=== PATIENT | male | born 1995 | race Caucasian/White ===

== ENCOUNTER 2018-09-04 14:43 | Emergency (ER) | payer BC, SELFPAY | END 2018-09-04 15:50 | LOC: ERS 14:43 | DX: Z02.89 Encounter for other administrative examinations (principal); F41.9 Anxiety disorder, unspecified; F32.9 Major depressive disorder, single episode, unspecified; F17.210 Nicotine dependence, cigarettes, uncomplicated; Z79.01 Long term (current) use of anticoagulants; V89.2XXA Person injured in unspecified motor-vehicle accident, traffic, initial encounter | CPT/HCPCS: 99284 ==

== ENCOUNTER 2018-09-04 22:01 | Emergency (ER) | payer SELFPAY ==
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
[2018-09-04] MEDS ORDERED: Ketorolac Tromethamine 60 MG/2 ML VIAL ONE (23:42)
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
== END 2018-09-05 00:06 | disposition home or self-care (01) ==
LOC: ERS 22:01
DX: S39.012A Strain of muscle, fascia and tendon of lower back, initial encounter (principal); I10 Essential (primary) hypertension; F41.9 Anxiety disorder, unspecified; F17.200 Nicotine dependence, unspecified, uncomplicated; F32.9 Major depressive disorder, single episode, unspecified; Z79.01 Long term (current) use of anticoagulants; V47.5XXA Car driver injured in collision with fixed or stationary object in traffic accident, initial encounter
CPT/HCPCS: 72100; 72125; 96372; J1885

== ENCOUNTER 2019-03-11 15:56 | Emergency (ER) | payer SELFPAY ==
[2019-03-11 16:38] LABS: #Basophils 0.1 thou/uL (0.0-0.2); #Eosinphils 0.1 thou/uL (0.0-0.7); #Lymphocytes 2.6 thou/uL (1.20-3.40); #Monocytes 0.8 thou/uL (0.11-0.59); #Neutrophils 4.9 thou/uL (1.40-6.50); %Basophils 1.1 % (0.0-1.0); %Eosinophils 0.7 % (0.0-10.0); %Lymphocytes 30.8 % (21.0-51.0); %Monocytes 9.3 % (0.0-10.0); %Neutrophils 58.1 % (42.0-75.0); Hemoglobin 14.9 g/dL (14.0-18.0); Mean Corpuscular HGB CONC 34.1 g/dL (32.0-36.0); Mean Corpuscular Hemoglobin 29.5 pg (27.0-31.0); Mean Corpuscular Volume 86.4 fL (78.0-98.0); Mean Platelet Volume 9.1 fL (7.4-10.4); Platelet Count 292 thou/uL (130-400); RBC Distribution Width 12.9 % (11.5-14.5); Red Blood Cell (RBC) Count 5.07 mill/uL (4.70-6.10); White Blood Cell (WBC) Count 8.5 thou/uL (4.8-10.8)
[2019-03-11 17:03] LABS: ALT (SGPT) 23 U/L (8-55); AST (SGOT) 19 U/L (5-34); Acetaminophen Less than 6.0 mcg/mL (10.0-30.0); Albumin 4.6 g/dL (3.5-5.0); Alcohol Less than 10 mg/dL (Less than 10); Alkaline Phosphatase 49 U/L (40-150); Anion Gap 16 mmol/L (10-20); BUN (Urea Nitrogen) 11 mg/dL (8.9-20.6); Bilirubin, Total 1.4 mg/dL (0.2-1.2); Calc. Creatinine Clearance 0 mL/min (70-130); Calcium 10.4 mg/dL (7.8-10.44); Carbon Dioxide 19 mmol/L (22-29); Chloride 109 mmol/L (98-107); Estimated GFR-MDRD 78; Globulin 3.2 g/dL (2.4-3.5); Glucose 124 mg/dL (70-105); Potassium 3.2 mmol/L (3.5-5.1); Protein, Total 7.8 g/dL (6.0-8.3); Salicylate Less than 8.0 mg/dL (15.0-30.0); Sodium 141 mmol/L (136-145)
== END 2019-03-11 17:34 | disposition left against medical advice (07) ==
LOC: ERS 15:56
DX: F14.10 Cocaine abuse, uncomplicated (principal); F41.9 Anxiety disorder, unspecified; F32.9 Major depressive disorder, single episode, unspecified; Z79.01 Long term (current) use of anticoagulants; Z79.899 Other long term (current) drug therapy
CPT/HCPCS: 36415; 80053; 80307; 85025; 93005

== ENCOUNTER 2019-05-28 17:44 | Emergency (ER) | payer OTHER ==
[2019-05-28 19:07] LABS: #Basophils 0.1 thou/uL (0.0-0.2); #Eosinphils 0.3 thou/uL (0.0-0.7); #Lymphocytes 3.2 thou/uL (1.20-3.40); #Monocytes 0.8 thou/uL (0.11-0.59); #Neutrophils 4.7 thou/uL (1.40-6.50); %Basophils 1.3 % (0.0-1.0); %Eosinophils 3.5 % (0.0-10.0); %Lymphocytes 34.7 % (21.0-51.0); %Neutrophils 51.6 % (42.0-75.0); Hemoglobin 13.5 g/dL (14.0-18.0); Mean Corpuscular HGB CONC 34.4 g/dL (32.0-36.0); Mean Corpuscular Hemoglobin 29.3 pg (27.0-31.0); Mean Corpuscular Volume 85.2 fL (78.0-98.0); Mean Platelet Volume 8.4 fL (7.4-10.4); Platelet Count 321 thou/uL (130-400); RBC Distribution Width 12.9 % (11.5-14.5); Red Blood Cell (RBC) Count 4.59 mill/uL (4.70-6.10); White Blood Cell (WBC) Count 9.2 thou/uL (4.8-10.8)
[2019-05-28] MEDS ORDERED: clonazePAM 0.5 MG TAB ONE (19:23)
[2019-05-28 19:30] LABS: ALT (SGPT) 15 U/L (8-55); AST (SGOT) 13 U/L (5-34); Acetaminophen Less than 6.0 mcg/mL (10.0-30.0); Albumin 4.6 g/dL (3.5-5.0); Alcohol Less than 10 mg/dL (Less than 10); Alkaline Phosphatase 61 U/L (40-150); Anion Gap 14 mmol/L (10-20); BUN (Urea Nitrogen) 9 mg/dL (8.9-20.6); Bilirubin, Total 0.6 mg/dL (0.2-1.2); CK (CPK) 71 U/L (30-200); Calc. Creatinine Clearance 0 mL/min (70-130); Calcium 9.7 mg/dL (7.8-10.44); Carbon Dioxide 25 mmol/L (22-29); Chloride 104 mmol/L (98-107); Estimated GFR-MDRD Greater than 90; Glucose 91 mg/dL (70-105); Potassium 3.9 mmol/L (3.5-5.1); Protein, Total 7.6 g/dL (6.0-8.3); Salicylate Less than 8.0 mg/dL (15.0-30.0); Sodium 139 mmol/L (136-145)
[2019-05-29 00:04] LABS: Bacteria/HPF None Seen HPF (None Seen); Bilirubin Negative (Negative); Blood, Urine 1+ (Negative); Clarity Clear (Clear); Glucose, Urine (Dipstick) Normal (Negative); Leukocyte Negative Leu/uL (Negative); Mucous/LPF 2+ LPF (<2+); Nitrite Negative (Negative); Protein, Urine (Dipstick) 30 mg/dL (Neg-Trace); Squamous Epithelial 0-3 HPF (0-3); Urobilinogen Normal mg/dL (Less than 2); WBC/HPF 0-3 HPF (0-3)
[2019-05-29 00:10] LABS: Amphetamine Detected (NotDetected); Barbiturates Screen Not Detected (NotDetected); Benzodiazepine Screen Not Detected (NotDetected); Cocaine Metabolite Screen Not Detected (NotDetected); Medtox Control Line Valid? VALID (VALID); Medtox Reader # READER 4; Methadone Not Detected (NotDetected); Methamphetamine Detected (NotDetected); Opiate Screen Not Detected (NotDetected); Oxycodone Screen Not Detected (NotDetected); Phencyclidine (PCP) Not Detected (NotDetected); THC/Cannabinoid Screen Not Detected (NotDetected); Tricyclic Screen Not Detected (NotDetected)
--- NOTE | 2019-05-31 14:43 | EKG ---
Test Reason : Blood Pressure : / mmHG Vent. Rate : 065 BPM Atrial Rate : 065 BPM P-R Int : 118 ms QRS Dur : 096 ms QT Int : 400 ms P-R-T Axes : 011 060 041 degrees QTc Int : 416 ms Normal sinus rhythm with sinus arrhythmia Normal ECG Confirmed by KAREN MENDIOLA M.D. ([id number]), web content editor IRINEO PATTON ([id number]) on 05/31/2019 2:42:58 PM Referred By: Confirmed By:KAREN MENDIOLA M.D.
== END 2019-05-29 05:35 ==
LOC: ERS 17:44
DX: F19.10 Other psychoactive substance abuse, uncomplicated (principal); F23 Brief psychotic disorder; F41.9 Anxiety disorder, unspecified; F32.9 Major depressive disorder, single episode, unspecified; F17.200 Nicotine dependence, unspecified, uncomplicated; Z79.899 Other long term (current) drug therapy
CPT/HCPCS: 36415; 80053; 80306; 80307; 81003; 81015; 82550; 84443; 85025; 93005; 94760

== ENCOUNTER 2019-07-10 01:47 | Emergency (ER) | payer OTHER ==
[2019-07-10 02:37] LABS: #Basophils 0.1 thou/uL (0.0-0.2); #Eosinphils 0.5 thou/uL (0.0-0.7); #Lymphocytes 2.5 thou/uL (1.20-3.40); #Monocytes 1.1 thou/uL (0.11-0.59); #Neutrophils 5.1 thou/uL (1.40-6.50); %Basophils 0.7 % (0.0-1.0); %Lymphocytes 26.7 % (21.0-51.0); %Monocytes 12.2 % (0.0-10.0); %Neutrophils 55.3 % (42.0-75.0); Hemoglobin 12.1 g/dL (14.0-18.0); Mean Corpuscular HGB CONC 34.7 g/dL (32.0-36.0); Mean Corpuscular Hemoglobin 30.2 pg (27.0-31.0); Mean Platelet Volume 8.6 fL (7.4-10.4); Platelet Count 224 thou/uL (130-400); White Blood Cell (WBC) Count 9.2 thou/uL (4.8-10.8)
[2019-07-10 02:55] LABS: Amphetamine Not Detected (NotDetected); Barbiturates Screen Not Detected (NotDetected); Benzodiazepine Screen Not Detected (NotDetected); Cocaine Metabolite Screen Not Detected (NotDetected); Medtox Control Line Valid? VALID (VALID); Medtox Reader # READER 4; Methadone Not Detected (NotDetected); Methamphetamine Not Detected (NotDetected); Opiate Screen Not Detected (NotDetected); Oxycodone Screen Not Detected (NotDetected); Phencyclidine (PCP) Not Detected (NotDetected); THC/Cannabinoid Screen Not Detected (NotDetected); Tricyclic Screen Not Detected (NotDetected)
[2019-07-10 02:59] LABS: ALT (SGPT) 13 U/L (8-55); AST (SGOT) 13 U/L (5-34); Acetaminophen Less than 6.0 mcg/mL (10.0-30.0); Albumin 3.9 g/dL (3.5-5.0); Alcohol Less than 10 mg/dL (Less than 10); Alkaline Phosphatase 51 U/L (40-110); Anion Gap 11 mmol/L (10-20); BUN (Urea Nitrogen) 12 mg/dL (8.9-20.6); Bilirubin, Total 0.4 mg/dL (0.2-1.2); CK (CPK) 148 U/L (30-200); Calc. Creatinine Clearance 0 mL/min (70-130); Calcium 8.9 mg/dL (7.8-10.44); Carbon Dioxide 27 mmol/L (22-29); Chloride 107 mmol/L (98-107); Estimated GFR-MDRD Greater than 90; Globulin 2.4 g/dL (2.4-3.5); Glucose 99 mg/dL (70-105); Potassium 4.1 mmol/L (3.5-5.1); Protein, Total 6.3 g/dL (6.0-8.3); Salicylate Less than 8.0 mg/dL (15.0-30.0); Sodium 141 mmol/L (136-145)
== END 2019-07-10 03:32 | disposition home or self-care (01) ==
LOC: ERS 01:47
DX: F11.23 Opioid dependence with withdrawal (principal); E05.90 Thyrotoxicosis, unspecified without thyrotoxic crisis or storm; L01.00 Impetigo, unspecified; F41.9 Anxiety disorder, unspecified; F32.9 Major depressive disorder, single episode, unspecified; F17.200 Nicotine dependence, unspecified, uncomplicated; Z79.899 Other long term (current) drug therapy
CPT/HCPCS: 36415; 80053; 80306; 80307; 82550; 84443; 85025; 99284

== ENCOUNTER 2019-07-20 11:58 | Emergency (ER) | payer OTHER | END 2019-07-20 12:58 | disposition home or self-care (01) | LOC: ERS 11:58 | DX: L02.01 Cutaneous abscess of face (principal); H10.9 Unspecified conjunctivitis; F41.9 Anxiety disorder, unspecified; F32.9 Major depressive disorder, single episode, unspecified; F17.200 Nicotine dependence, unspecified, uncomplicated | CPT/HCPCS: 99283 ==

== ENCOUNTER 2019-10-11 11:09 | Inpatient (IN) | payer OTHER, SELFPAY ==
[2019-10-11] MEDS ORDERED: Naloxone HCl 0.4 mg/ml Vial ONE (11:12)
[2019-10-11] MEDS ORDERED: Naloxone HCl 2 mg/2 ml Syringe ONE (11:12)
[2019-10-11] MEDS ORDERED: Ketamine 50 MG/ML (10ML VIAL) ONE (11:18)
[2019-10-11] MEDS ORDERED: fentaNYL Citrate/PF 2,000 MCG in Sodium Chloride 0.9% 60 ML IV SCH (11:31)
[2019-10-11 11:44] LABS: INR-International Normal Ratio 1.2; PTT 36.7 SEC (22.9-36.1); Prothrombin Time 15.5 SEC (12.0-14.7)
[2019-10-11 11:51] LABS: Bacteria/HPF None Seen HPF (None Seen); Bilirubin Negative (Negative); Blood, Urine 1+ (Negative); Clarity Clear (Clear); Glucose, Urine (Dipstick) Normal (Negative); Leukocyte Negative Leu/uL (Negative); Nitrite Negative (Negative); Protein, Urine (Dipstick) 30 mg/dL (Neg-Trace); RBC/HPF 0-3 HPF (0-3); Squamous Epithelial 0-3 HPF (0-3); Urobilinogen Normal mg/dL (Less than 2); WBC/HPF 0-3 HPF (0-3)
[2019-10-11 11:52] LABS: Band 18 % (5-11); Hemoglobin 14.8 g/dL (14.0-18.0); Lymphocytes 14 % (21-51); MDiff Complete? YES; Mean Corpuscular HGB CONC 33.1 g/dL (32.0-36.0); Mean Corpuscular Hemoglobin 29.2 pg (27.0-31.0); Mean Corpuscular Volume 88.2 fL (78.0-98.0); Mean Platelet Volume 10.1 fL (7.4-10.4); Neutrophil 68 % (42-75); Platelet Count 181 thou/uL (130-400); RBC Distribution Width 13.2 % (11.5-14.5); Red Blood Cell (RBC) Count 5.07 mill/uL (4.70-6.10); White Blood Cell (WBC) Count 16.3 thou/uL (4.8-10.8)
[2019-10-11 12:01] LABS: Amphetamine Detected (NotDetected); Barbiturates Screen Not Detected (NotDetected); Benzodiazepine Screen Not Detected (NotDetected); Cocaine Metabolite Screen Not Detected (NotDetected); Medtox Control Line Valid? VALID (VALID); Medtox Reader # READER 4; Methadone Not Detected (NotDetected); Methamphetamine Detected (NotDetected); Opiate Screen Detected (NotDetected); Oxycodone Screen Not Detected (NotDetected); Phencyclidine (PCP) Not Detected (NotDetected); THC/Cannabinoid Screen Not Detected (NotDetected); Tricyclic Screen Not Detected (NotDetected)
[2019-10-11 12:01] LABS: Acetaminophen Less than 6.0 mcg/mL (10.0-30.0); Alcohol Less than 10 mg/dL (Less than 10); Salicylate Less than 8.0 mg/dL (15.0-30.0)
[2019-10-11 12:02] LABS: ALT (SGPT) 200 U/L (8-55); AST (SGOT) 225 U/L (5-34); Albumin 4.6 g/dL (3.5-5.0); Alkaline Phosphatase 82 U/L (40-110); Anion Gap 20 mmol/L (10-20); BUN (Urea Nitrogen) 20 mg/dL (8.9-20.6); Bilirubin, Total 0.5 mg/dL (0.2-1.2); Calc. Creatinine Clearance 0 mL/min (70-130); Calcium 8.7 mg/dL (7.8-10.44); Carbon Dioxide 21 mmol/L (22-29); Chloride 103 mmol/L (98-107); Estimated GFR-MDRD 48; Globulin 2.8 g/dL (2.4-3.5); Glucose 125 mg/dL (70-105); Lipase 13 U/L (8-78); Protein, Total 7.4 g/dL (6.0-8.3); Sodium 138 mmol/L (136-145)
[2019-10-11 12:10] LABS: Actual Bicarbonate (HCO3a) 20.8 mEq/L (22-28); Analyzer IN Cardio ER; Base Excess (BEa) -8.7 mEq/L (-2.0 to +3.0); Calcium, Ionized 1.15 mmol/L (1.12-1.30); Carboxyhemoglobin (COHb) 0.3 gm% (0.0-3.0); Hemoglobin (Hb) 14.2 g/dL (14.0-18.0); Potassium - ABG Lab 5.33 mmol/L (3.70-5.30)
[2019-10-11] MEDS ORDERED: Norepinephrine 8 MG/0.9% NS 250 ML ONE (12:27)
[2019-10-11 12:55] LABS: CKMB 2.3 ng/mL (0-6.6)
--- NOTE | 2019-10-11 12:57 | RAD ---
PORTABLE CHEST ONE VIEW: 10/11/2019 11:51 a.m. HISTORY: Respiratory failure. FINDINGS: There is an endotracheal tube with the tip at the level of the clavicular heads. A nasogastric tube c an be traced into the stomach. There is opacification of the right hemithorax which may be due to ate lectatic change or effusion. The left lung is clear. The heart size is normal. Since there is no midl ine shift, the finding in the right hemithorax is more likely due to atelectatic change than a pleura l effusion. POS: [facility]
[2019-10-11] MEDS ORDERED: Piperacillin/Tazobactam 3.375 GM VIAL ONE (13:30)
[2019-10-11] MEDS ORDERED: Propofol 1,000 MG/100 ML VIAL IV ONE (14:00)
[2019-10-11] MEDS ORDERED: Senokot S 8.6-50 MG TAB PO PRN (14:07)
[2019-10-11] MEDS ORDERED: Loperamide HCl 2 MG CAP PO PRN (14:07)
[2019-10-11] MEDS ORDERED: Bisacodyl 5 MG TAB PO PRN (14:07)
--- NOTE | 2019-10-11 14:09 | RAD ---
PORTABLE CHEST ONE VIEW: 10/11/2019 1:36 p.m. HISTORY: Respiratory failure. COMPARISON: Exam done at 11:51 a.m. from the same day. FINDINGS: Endotracheal and nasogastric tubes remain in place. There has been interval improvement in aeration o f the right lung, compared to the previous study. The heart size is stable and the left lung is clear . There is suggestion of a small right pleural effusion. POS: [facility]
[2019-10-11] MEDS ORDERED: Melatonin 3 MG TAB PO PRN (14:10)
[2019-10-11] MEDS ORDERED: Lorazepam 2 MG/ML VIAL SLOW IVP PRN ×2 (14:10→16:26)
[2019-10-11] MEDS ORDERED: Benzonatate 100 MG CAP PO PRN (14:10)
[2019-10-11] MEDS ORDERED: Labetalol HCl 100 MG/20 ML VIAL SLOW IVP PRN (14:10)
[2019-10-11] MEDS ORDERED: Haloperidol Lactate 5 MG/ML VIAL IM PRN (14:10)
[2019-10-11 14:29] LABS: CO2 Tension 60.3 mmHg (35.0-45.0); pH, Arterial 7.16 (7.35-7.45)
[2019-10-11 14:30] LABS: ALV-art Gradient 585.625 (0-20); Puncture Site LBA
[2019-10-11 14:39] LABS: Lactic Acid 4.2 mmol/L (0.5-2.2)
--- NOTE | 2019-10-11 14:45 | RAD ---
XR Chest 1 View Portable HISTORY: Respiratory failure, central line placement COMPARISON: 1:36 PM from same date FINDINGS: There is been interval placement of a right internal jugular central venous catheter with t ip in the projection of the SVC. No pneumothorax is seen. Remainder the exam is stable.
[2019-10-11] MEDS ORDERED: Vancomycin HCl 1.75 GM in Sodium Chloride 0.9% 500 ML IVPB SCH (15:00)
[2019-10-11] MEDS ORDERED: Cefepime 2 GM in Sodium Chloride 0.9% 100 ML IVPB SCH (15:00)
[2019-10-11] MEDS ORDERED: Cefepime 2 GM VIAL ONE (15:12)
--- NOTE | 2019-10-11 16:18 | CT ---
CT BRAIN WITHOUT CONTRAST: HISTORY: Drug overdose, dilated pupils COMPARISON: 04/15/2015 FINDINGS: No evidence of acute infarct, hemorrhage, midline shift or abnormal extra-axial fluid collections is seen. The ventricular size is appropriate and the basilar cisterns are patent. The bony calvarium is intact. The visualized paranasal sinuses and mastoid air cells are well aerated. IMPRESSION: No CT evidence of acute intracranial process.
[2019-10-11] MEDS ORDERED: Propofol BOLUS 1,000 MG/100 ML VIAL IV PRN (16:26)
[2019-10-11] MEDS ORDERED: DISCONTINUE PREVIOUS NARCOTIC PAIN MEDICATIONS AND BENZODIAZEPINES FS SCH (16:26)
[2019-10-11] MEDS ORDERED: Fentanyl BOLUS 250 ML IVPB PRN (16:26)
[2019-10-11] MEDS ORDERED: Morphine 2 MG/ML SYRINGE SLOW IVP PRN (16:26)
[2019-10-11] MEDS ORDERED: methylPREDNISolone Sod Succ 40 MG VIAL IVP SCH (17:15)
--- NOTE | 2019-10-11 17:41 | CON ---
DATE OF CONSULTATION: 10/11/2019 SERVICE: Pulmonary Medicine. REASON FOR CONSULTATION: Intubated patient. HISTORY OF PRESENT ILLNESS: The patient is a 24-year-old white male with past medical history significant for seizures. It is not clear when he was last seen in his usual state of health. Either way, he was found by the cleaning crew at a motel that he was at. He was down and completely unresponsive. Apparently, there was some crushed pills around him and there was some paraphernalia suggesting that he was snorting some material. Unfortunately, we are not certain what that was. Either way, since he was not protecting his airway with a GST of 3, he is brought to the emergency department. He was never pulseless, though he was bradycardic. In the emergency department, he was found to be acidotic. He was horrendously hypoxemic. Chest x-ray was performed demonstrating a complete atelectasis of the majority of the right lung. We emergently bronched him downstairs in the emergency department, and his oxygenation improved. We are going to be holding all sedation to see whether or not he wakes up through time. Otherwise, no additional history can be obtained from him. PAST MEDICAL HISTORY: Seizure disorder. PAST SURGICAL HISTORY: Tonsillectomy. FAMILY HISTORY: Noncontributory. SOCIAL HISTORY: He currently uses and abuses benzodiazepine, cocaine, and heroin. ALLERGIES: No known drug allergies. MEDICATIONS: List of his inpatient medications was reviewed and heavily modified. REVIEW OF SYSTEMS: Cannot be obtained as the patient is currently encephalopathic. PHYSICAL EXAMINATION: VITAL SIGNS: Afebrile, pulse 113, blood pressure 112/73, respirations. HEENT: Normocephalic and atraumatic. Sclerae white. Conjunctivae pink. Oral mucosa is moist without lesions. LUNGS: There is decreased air entry on the right. There is slightly prolonged expiratory phase. Good air entry on the left. No rhonchi appreciated. HEART: Normal rate. Regular. ABDOMEN: Soft, nontender, nondistended. Bowel sounds are positive. MUSCULOSKELETAL: No cyanosis or clubbing. There is no pitting in the bilateral lower extremities. He has multiple red/erythematous plaques and punctate lesions. He has a breakdown on the back of his neck, which is unstageable. LABORATORY DATA: WBC 16.3, hemoglobin 14.8, platelets 181,000. INR 1.2. PH 7.16, pCO2 of 60, of PO2 of 52. Creatinine 1.77, potassium 6.0. Basic metabolic profile is otherwise unremarkable. AST and ALT are elevated. CK 1981, troponin 0.06. Lactate is trending downward to 4.2. Urinalysis is unremarkable. Urine drug screen is positive for opiates, amphetamines, and methamphetamine. Salicylates, acetaminophen, and alcohol are unremarkable. Respiratory culture is unremarkable. IMAGING DATA: 1. Chest x-ray demonstrates endotracheal tube is in good position. There is a right IJ central venous catheter, which is also in good position. There has been interval re-expansion of that right lung. 2. CT of the brain demonstrates no acute intracranial abnormality. ASSESSMENT: 1. Acute hypoxic respiratory failure. 2. Septic shock, etiology unknown. 3. Acute kidney injury. 4. Elevated CK. 5. Shock liver. 6. Polysubstance drug abuse. DISCUSSION AND PLAN: We will empirically put him on good antibiotics. We will give him steroids and nebulized medications. I will repeat a CK and a troponin tomorrow morning. Pulmonary/Critical Care will continue to follow along very closely. Critical care time: 30 minutes. Job ID: [id number] MTDD
[2019-10-11] MEDS ORDERED: Sodium Chloride 0.9% 1,000 ML IV SCH (17:45)
--- NOTE | 2019-10-11 17:54 | PDOC.HHP ---
Hospitalist HPI - History of Present Illness Overdose History of Present Illness: 24-year-old gentleman with past medical history of extensive drug use and seizure disorder presents with drug overdose. Reportedly patient was found by EMS at a motel surrounded by crushed pills and paraphernalia. Patient was intubated for airway protection and low [place] Coma Scale. Upon arrival in the emergency department patient was hypoxic and it was found that he had mucus plugging in the right lung requiring emergent bronchoscopy. After bronchoscopy patient's O2 saturation's normalized. I find the patient in the intensive care unit he is intubated, sedated, and on vasoactive medications to maintain his blood pressure. Patient diagnosed with acute respiratory failure secondary drug overdose and mucus plugging. Patient septic with shock requiring vasoactive medications, no obvious source though aspiration pneumonia is likely. Patient with rhabdomyolysis with elevated CK and acute kidney injury. Patient with urinary toxicology positive for opiates, amphetamines, and methamphetamines. Patient does have track archuleta on both antecubital fossa from recent injection use. I had a long discussion with the patient's parents at bedside. They tell me that he has been out of long term for roughly one week and was back on drugs within two days of release from long term. Patient has had similar episodes in the past. Patient has reportedly used all drugs including intravenous heroin, methamphetamines and his parents tell me "he has used everything". Patient has been to drug and alcohol rehabilitation programs in the past. Patient has been to inpatient psychiatric facilities in the past. Patient's parents tell me that less than 24 hours ago he told them that if things got any worse for him he was going to kill himself. At this point we have diagnosed him with attempted suicide from drug overdose. Patient will require inpatient psychiatric care after he has been medically stabilized. Prognosis guarded. 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 Infectious Disease: reports: Other (Possible Hepatitis C) - Family History Family History: reports: hypertension - Social History Alcohol: reports: Occassional Drugs: reports: cocaine, heroine, marijuana, methamphetamine, Other Living Situation: Friends Domestic Violence: Negative Activity level: independent ambulation - Exam General Appearance: ill appearing Eye: anicteric sclera Eye - other findings: Pinpoint pupils ENT: no oropharyngeal lesions, dry oral mucosa Neck: supple, symmetric, no lymphadenopathy Heart: no murmur, no gallops, no rubs Heart - other findings: sinsus tachycardia Respiratory: no rales, rhonchi (right), wheezes (right few scattered) Gastrointestinal: soft, non-tender, no guarding, no rigidity Extremities: no edema Skin: negative: no rashes (Pick archuleta from Meth use accross arms and legs) Skin - other findings: Antecubital fossa track archuleta from injection drugs Neurological: cranial nerve grossly intact, no focal deficits Psychiatric: not oriented Hospitalist Results - Labs Result Diagrams: 10/11/19 11:27 10/11/19 11:27 Lab results: WBC 16.3 thou/uL (4.8-10.8) H 10/11/19 11:27 Hgb 14.8 g/dL (14.0-18.0) 10/11/19 11:27 Hct 44.7 % (42.0-52.0) 10/11/19 11:27 MCV 88.2 fL (78.0-98.0) 10/11/19 11:27 Plt Count 181 thou/uL (130-400) 10/11/19 11:27 Band Neuts % (Manual) 18 % (5-11) H 10/11/19 11:27 ABG pH 7.16 (7.35-7.45) L* 10/11/19 11:41 ABG pCO2 60.3 mmHg (35.0-45.0) H* 10/11/19 11:41 ABG pO2 52.0 mmHg (80.0-100.0) L* 10/11/19 11:41 Sodium 138 mmol/L (136-145) 10/11/19 11:27 Potassium 6.0 mmol/L (3.5-5.1) H 10/11/19 11:27 Chloride 103 mmol/L (98-107) 10/11/19 11:27 Carbon Dioxide 21 mmol/L (22-29) L 10/11/19 11:27 BUN 20 mg/dL (8.9-20.6) 10/11/19 11:27 Creatinine 1.77 mg/dL (0.7-1.3) H 10/11/19 11:27 Glucose 125 mg/dL (70-105) H 10/11/19 11:27 Lactic Acid 4.2 mmol/L (0.5-2.2) H* 10/11/19 14:05 Calcium 8.7 mg/dL (7.8-10.44) 10/11/19 11:27 Total Bilirubin 0.5 mg/dL (0.2-1.2) 10/11/19 11:27 AST 225 U/L (5-34) H 10/11/19 11:27 ALT 200 U/L (8-55) H 10/11/19 11:27 Alkaline Phosphatase 82 U/L (40-110) 10/11/19 11:27 Creatine Kinase 1981 U/L (30-200) H 10/11/19 11:27 CK-MB (CK-2) 2.3 ng/mL (0-6.6) 10/11/19 11:27 Troponin I 0.200 ng/mL (< 0.028) H 10/11/19 16:49 Serum Total Protein 7.4 g/dL (6.0-8.3) 10/11/19 11:27 Albumin 4.6 g/dL (3.5-5.0) 10/11/19 11:27 Lipase 13 U/L (8-78) 10/11/19 11:27 Urine Ketones Negative mg/dL (Negative) 10/11/19 11:33 Urine Blood 1+ (Negative) A 10/11/19 11:33 Urine Nitrite Negative (Negative) 10/11/19 11:33 Ur Leukocyte Esterase Negative Shemar/uL (Negative) 10/11/19 11:33 Urine RBC 0-3 HPF (0-3) 10/11/19 11:33 Urine WBC 0-3 HPF (0-3) 10/11/19 11:33 Ur Squamous Epith Cells 0-3 HPF (0-3) 10/11/19 11:33 Urine Bacteria None Seen HPF (None Seen) 10/11/19 11:33 - Radiology Interpretation CT scan - head Status: image reviewed by me Chest x-ray Status: image reviewed by me Hospitalist H&P A/P - Problem (1) Acute respiratory failure with hypoxemia Code(s): J96.01 - ACUTE RESPIRATORY FAILURE WITH HYPOXIA Status: Acute (2) Drug overdose, intentional Code(s): T50.902A - POISONING BY UNSP DRUG/MEDS/BIOL SUBST, SELF-HARM, INIT Status: Acute (3) Suicide attempt Status: Acute (4) Methamphetamine abuse Code(s): F15.10 - OTHER STIMULANT ABUSE, UNCOMPLICATED Status: Acute (5) Rhabdomyolysis Code(s): M62.82 - RHABDOMYOLYSIS Status: Acute (6) Septic shock Code(s): A41.9 - SEPSIS, UNSPECIFIED ORGANISM; R65.21 - SEVERE SEPSIS WITH SEPTIC SHOCK Status: Acute (7) Seizure Code(s): R56.9 - UNSPECIFIED CONVULSIONS Status: Acute - Plan Plan: Plan: admit to intensive care unit pulmonology/critical-care consultation, recommendations appreciated nephrology consultation, recommendations appreciated vent management, weaning when able broad-spectrum antibiotics de-escalate antibiotics to culture and sensitivity when able vasoactive medications to maintain mean arterial pressure greater than 65 IV fluid resuscitation breathing treatments echocardiogram to monitor for vegetation Pain control/ sedation PRN medications to keep the patient calm Restraints as needed for patients safety patient was taking Risperdal recently when he was in long term Acetaminophen levels and salicylate levels are negative with suicide attempt patient will require inpatient psychiatric treatment after medically stabilized and discharge from [facility] G.I. prophylaxis DVT prophylaxis disposition: prognosis guarded
[2019-10-11] MEDS: Piperacillin/Tazobactam 3.375 GM in Sodium Chloride 0.9% 100 ML IVPB SCH ×2 (18:20→23:51)
[2019-10-11] MEDS: Propofol 1,000 MG/100 ML VIAL IV PRN ×2 (18:20→20:25)
[2019-10-11 18:59] LABS: Anion Gap 18 mmol/L (10-20); BUN (Urea Nitrogen) 22 mg/dL (8.9-20.6); Calc. Creatinine Clearance 128 mL/min (70-130); Calcium 7.4 mg/dL (7.8-10.44); Carbon Dioxide 17 mmol/L (22-29); Chloride 109 mmol/L (98-107); Estimated GFR-MDRD 76; Glucose 89 mg/dL (70-105); Potassium 6.3 mmol/L (3.5-5.1); Sodium 138 mmol/L (136-145)
[2019-10-11] MEDS ORDERED: Sodium Bicarbonate 150 MEQ in Dextrose 5% in Water 1,000 ML IV SCH (19:30)
[2019-10-11] MEDS: Famotidine/PF 20 mg/2ml Vial SLOW IVP SCH (20:25)
[2019-10-11] MEDS ORDERED: FLU VACC QS2019-20(6MOS UP)/PF 60 MCG/0.5 ML SYRINGE IM ONE (21:00)
[2019-10-12] MEDS ORDERED: Norepinephrine 8 MG/0.9% NS 250 ML IVPB PRN (02:01)
--- NOTE | 2019-10-12 02:29 | OP ---
DATE OF PROCEDURE: 10/11/2019 SERVICE: Pulmonary Medicine. PROCEDURES PERFORMED: Fiberoptic bronchoscopy with, 1. Visual airway inspection. 2. Bronchial wash from the right mainstem bronchus. PREPROCEDURE DIAGNOSES: 1. Atelectasis of the right lung. 2. Acute hypoxic respiratory failure. POSTPROCEDURE DIAGNOSES: 1. Atelectasis of the right lung. 2. Acute hypoxic respiratory failure. MEDICATIONS USED: None. PREANESTHESIA ASSESSMENT: H and P had been performed. The patient's allergies were reviewed. Consent was implied secondary to emergent conditions. DESCRIPTION OF PROCEDURE: A time-out was performed by identifying the correct procedure and patient with name and date of . A diagnostic fiberoptic bronchoscope was introduced through the existing endotracheal tube. The bronchoscope was advanced into the trachea, where the tracheobronchial tree inspection was carried out. The left lung had a normal left upper lobe, lingula, and left lower lobe. There was significant mucus plugging that was liberated throughout that lung. The right lung had a large mucus plug that started at the opening of the right upper lobe, and completely obliterated the right bronchus intermedius. This was vigorously suctioned. Afterwards, there was normal anatomy distal to it. There was no endobronchial disease identified. The washing was sent for analysis. Postprocedure chest x-ray did not demonstrate a pneumothorax. FINDINGS: 1. No endobronchial disease was identified. 2. Mucus plug in the right bronchus intermedius was liberated. SPECIMENS: Bronchial washing for routine Gram stain and culture. COMPLICATIONS: None. ESTIMATED BLOOD LOSS: None. FLUOROSCOPY TIME: None. DISPOSITION: The patient will recover in the emergency department. Once stabilized, he can be transitioned to the ICU, where he will recover. Job ID: [id number]
[2019-10-12] MEDS: Propofol 1,000 MG/100 ML VIAL IV PRN ×2 (03:52→08:01)
[2019-10-12] MEDS ORDERED: Cefepime 2 GM in Sodium Chloride 0.9% 100 ML IVPB SCH (04:00)
[2019-10-12] MEDS ORDERED: Vancomycin 1.5 GRAM/300 ML BAG 1.5 GM in Premix Bag 1 BAG IVPB SCH (05:00)
[2019-10-12 05:05] LABS: #Lymphocytes 0.9 thou/uL (1.20-3.40); #Monocytes 0.7 thou/uL (0.11-0.59); #Neutrophils 7.2 thou/uL (1.40-6.50); %Basophils 0.1 % (0.0-1.0); %Eosinophils 0.3 % (0.0-10.0); %Lymphocytes 9.9 % (21.0-51.0); %Monocytes 7.4 % (0.0-10.0); %Neutrophils 82.3 % (42.0-75.0); Hemoglobin 13.3 g/dL (14.0-18.0); Mean Corpuscular HGB CONC 34.1 g/dL (32.0-36.0); Mean Corpuscular Hemoglobin 29.3 pg (27.0-31.0); Mean Corpuscular Volume 85.9 fL (78.0-98.0); Mean Platelet Volume 9.8 fL (7.4-10.4); Platelet Count 194 thou/uL (130-400); RBC Distribution Width 12.9 % (11.5-14.5); Red Blood Cell (RBC) Count 4.55 mill/uL (4.70-6.10); White Blood Cell (WBC) Count 8.8 thou/uL (4.8-10.8)
[2019-10-12 05:24] LABS: Anion Gap 12 mmol/L (10-20); BUN (Urea Nitrogen) 13 mg/dL (8.9-20.6); CK (CPK) 2527 U/L (30-200); Calc. Creatinine Clearance 159 mL/min (70-130); Calcium 8.1 mg/dL (7.8-10.44); Carbon Dioxide 26 mmol/L (22-29); Chloride 109 mmol/L (98-107); Estimated GFR-MDRD Greater than 90; Glucose 133 mg/dL (70-105); Potassium 3.9 mmol/L (3.5-5.1); Sodium 143 mmol/L (136-145)
[2019-10-12 05:28] LABS: Troponin I 0.262 ng/mL (< 0.028)
[2019-10-12] MEDS: Piperacillin/Tazobactam 3.375 GM in Sodium Chloride 0.9% 100 ML IVPB SCH ×2 (06:01→11:09)
[2019-10-12] MEDS: Famotidine/PF 20 mg/2ml Vial SLOW IVP SCH (08:02)
[2019-10-12] MEDS: Enoxaparin Sodium 40 MG/0.4 ML SYRINGE SC SCH (08:02)
[2019-10-12] MEDS ORDERED: methylPREDNISolone Sod Succ 40 MG VIAL IVP SCH (09:00)
[2019-10-12] MEDS ORDERED: Piperacillin/Tazobactam 3.375 GM VIAL ONE (11:11)
[2019-10-12] MEDS ORDERED: Ziprasidone 20 MG VIAL IM PRN (11:51)
[2019-10-12] MEDS ORDERED: Sterile Water 10 ML VIAL FS PRN (11:54)
[2019-10-12] MEDS ORDERED: Lorazepam 2 MG/ML VIAL SLOW IVP PRN (12:39)
--- NOTE | 2019-10-12 12:52 | PDOC.HOSPP ---
- Subjective Subjective: Seen and examined. Patient doing well on breathing trial. Discuss with patient' s family and pulmonology. - Objective Vital Signs & Weight: Vital Signs (12 hours) Temp Pulse Resp BP Pulse Ox 10/12/19 11:51 98.9 F 10/12/19 09:34 99 10/12/19 08:00 16 98 10/12/19 07:00 99.0 F 10/12/19 06:51 91 107/61 10/12/19 06:50 90 15 96 10/12/19 06:00 15 10/12/19 04:00 100.4 F H 15 10/12/19 02:23 88 124/62 10/12/19 02:00 15 Weight Weight 203 lb 0.732 oz Most Recent Monitor Data Heart Rate from ECG 91 NIBP 136/68 NIBP BP-Mean 90 Respiration from ECG 6 SpO2 91 I&O: 10/11/19 10/12/19 10/13/19 06:59 06:59 06:59 Intake Total 2507 1106 Output Total 3470 540 Balance -963 566 Result Diagrams: 10/12/19 04:43 10/12/19 04:43 Radiology Reviewed by me: Yes Hospitalist ROS - Review of Systems ROS unobtainable: due to endotracheal tube - Medication Medications: Active Medications Generic Name Dose Route Start Last Admin Trade Name Freq PRN Reason Stop Dose Admin Enoxaparin Sodium 40 mg 10/12/19 09:00 10/12/19 08:02 Lovenox SC 40 mg 0900 ASHLEY Administration Dexmedetomidine HCl 200 mcg/ 50 mls @ 0 mls/hr 10/11/19 23:59 10/12/19 08:33 Sodium Chloride IVPB 50 mls INF SAHLEY Administration Protocol Titrate Dexmedetomidine HCl 400 mcg/ 100 mls @ 0 mls/hr 10/12/19 10:45 10/12/19 11:10 Sodium Chloride IVPB 100 mls INF ASHLEY Administration Protocol Titrate - Exam General Appearance: awake alert Eye: PERRL ENT: normocephalic atraumatic, moist mucosa Neck: supple, symmetric, no lymphadenopathy Heart: no murmur, no gallops, no rubs Respiratory: no rales, no tachypnea, rhonchi, wheezes Gastrointestinal: soft, non-tender, non-distended, no guarding, no rigidity Extremities: no edema Skin: no lesions, no rashes Neurological: cranial nerve grossly intact, no focal deficits Psychiatric: somnolent Hosp A/P (1) Acute respiratory failure with hypoxemia Code(s): J96.01 - ACUTE RESPIRATORY FAILURE WITH HYPOXIA Status: Acute (2) Drug overdose, intentional Code(s): T50.902A - POISONING BY UNSP DRUG/MEDS/BIOL SUBST, SELF-HARM, INIT Status: Acute (3) Suicide attempt Status: Acute (4) Methamphetamine abuse Code(s): F15.10 - OTHER STIMULANT ABUSE, UNCOMPLICATED Status: Acute (5) Rhabdomyolysis Code(s): M62.82 - RHABDOMYOLYSIS Status: Acute (6) Septic shock Code(s): A41.9 - SEPSIS, UNSPECIFIED ORGANISM; R65.21 - SEVERE SEPSIS WITH SEPTIC SHOCK Status: Acute (7) Seizure Code(s): R56.9 - UNSPECIFIED CONVULSIONS Status: Acute - Plan Plan: Intensive care unit pulmonology/critical-care consultation, recommendations appreciated nephrology consultation, recommendations appreciated eent management, doing well on breathing trial this am. May plan to extubate broad-spectrum antibiotics de-escalate antibiotics to culture and sensitivity when able vasoactive medications to maintain mean arterial pressure greater than 65 have been weaned IV fluid resuscitation breathing treatments echocardiogram to monitor for vegetation pain control/sedation PRN medications to keep the patient calm restraints as needed for patient safety restart risperidone acetaminophen levels and salicylate levels are negative suicide attempt, will require inpatient psychiatric treatment when medically stabilized G.I. prophylaxis DVT prophylaxis disposition: prognosis guarded
--- NOTE | 2019-10-12 13:05 | PRG ---
DATE OF SERVICE: 10/12/2019 SERVICE: Pulmonary Medicine . INTERVAL HISTORY: The patient is doing much better today. We held his sedation , and he woke up like a shotgun. He denies any current fevers, chills. He remains on mechanical ventilator. We are going to abruptly put him on a CPAP trial to see how he does. If we can quantitate his lung function, we will likely proceed with extubation. Overnight, he was started on Precedex in anticipation that this might help him transition off the ventilator a touch smoother. PHYSICAL EXAMINATION: VITAL SIGNS: Afebrile, pulse 66, blood pressure 100/59, respirations 19, saturation 99%, currently on 29% FiO2 delivered via mechanical ventilator. HEENT: Normocephalic and atraumatic. Sclerae white. Conjunctivae pink. Oral mucosa is moist without lesions. LUNGS: Decent air entry. Extensive rhonchi are present. No prolonged expiratory phase appreciated. HEART: Normal rate, regular. ABDOMEN: Soft, nontender, nondistended. Bowel sounds are positive. MUSCULOSKELETAL: No cyanosis or clubbing. No pitting in the bilateral lower extremities. NEUROLOGIC: Grossly nonfocal. LABORATORY DATA: Basic metabolic profile is unremarkable. Magnesium and phosphorous fall within the normal limits. WBC 8.8, hemoglobin 13.3, and platelets 194,000. INR 1.2. His CK is gently up trending. Troponin is up trending to 0.262. Respiratory culture is growing multiple organisms and there are a lot of white blood cells. Final culture is pending. ASSESSMENT: 1. Acute hypoxic respiratory failure. 2. Septic shock, resolved. 3. Community-acquired pneumonia, secondary to overt aspiration. 4. Acute kidney injury, resolved. 5. Elevated CK. 6. Shock liver. 7. Polysubstance drug abuse. 8. Metabolic encephalopathy. DISCUSSION AND PLAN: The patient is doing fine from respiratory standpoint. I will repeat his liver function studies tomorrow morning, troponin, and CK. After a spontaneous breathing trial, we will see whether or not he can tolerate extubation. I do believe he is strong enough to clear any secretions that he may have retained. If he can tolerate p.o., we will switch him over to Augmentin and complete a 5- day course. Critical Care will follow in this location. Critical care time: 30 minutes. Job ID: [id number] [facility]
--- NOTE | 2019-10-12 16:26 | PRG ---
DATE OF SERVICE: 10/12/2019 SUBJECTIVE: Patient was seen and examined at bedside and overnight events noted. Patient denies any shortness of breath or chest pain or palpitation. No history of nausea or vomiting or diarrhea or fever or chills or cramps. OBJECTIVE: GENERAL: This is a well-built male, in no apparent distress. VITAL SIGNS: Temperature 98.9. Heart rate 83. Respiratory rate 23. Blood pressure 99/59. HEENT: Atraumatic, normocephalic. Oral mucosa is moist. NECK: Supple. CARDIOVASCULAR: S1, S2 heard. Rate and rhythm regular. RESPIRATORY: Clear to auscultation. GASTROINTESTINAL: Abdomen is soft. MUSCULOSKELETAL: No tenderness. No edema. DERMATOLOGIC: No skin rash. NEUROLOGIC: Alert and awake and oriented x3. No focal neurologic deficits. Moving all the extremities. PSYCHIATRIC: Mood and affect normal. LABORATORY DATA: Potassium 3.9, BUN is 13, and creatinine is 0.9. ASSESSMENT AND PLAN: 1. Acute kidney injury, much better. 2. Hyperkalemia, better. 3. Acidosis, better after bicarb. 4. Edema, controlled. 5. Lactic acidosis. Labs are much better. We will follow one more day. Job ID: [id number]
[2019-10-12] MEDS: risperiDONE 1 MG TAB PO SCH (19:59)
[2019-10-12] MEDS: Acetaminophen 325 MG TAB PO PRN (20:00)
[2019-10-12] MEDS: Amoxicillin/Potassium Clav 875 MG TAB PO SCH (20:01)
[2019-10-13] MEDS: Acetaminophen 325 MG TAB PO PRN ×2 (04:15→18:29)
[2019-10-13 04:30] LABS: Hemoglobin 11.8 g/dL (14.0-18.0)
[2019-10-13 04:50] LABS: Anion Gap 9 mmol/L (10-20); BUN (Urea Nitrogen) 12 mg/dL (8.9-20.6); CK (CPK) 1822 U/L (30-200); Calc. Creatinine Clearance 220 mL/min (70-130); Calcium 8.1 mg/dL (7.8-10.44); Carbon Dioxide 27 mmol/L (22-29); Chloride 111 mmol/L (98-107); Estimated GFR-MDRD Greater than 90; Glucose 115 mg/dL (70-105); Potassium 3.7 mmol/L (3.5-5.1); Sodium 143 mmol/L (136-145)
[2019-10-13 04:53] LABS: Troponin I 0.113 ng/mL (< 0.028)
[2019-10-13] MEDS: Enoxaparin Sodium 40 MG/0.4 ML SYRINGE SC SCH (08:32)
[2019-10-13] MEDS: Amoxicillin/Potassium Clav 875 MG TAB PO SCH ×2 (08:32→22:40)
[2019-10-13] MEDS: risperiDONE 1 MG TAB PO SCH ×2 (08:32→22:40)
--- NOTE | 2019-10-13 10:24 | CON ---
DATE OF CONSULTATION: 10/11/2019 CONSULTING PHYSICIAN: Dr. Ruvalcaba. REASON FOR CONSULTATION: Acute kidney injury. REASON FOR ADMISSION: Altered mentation. HISTORY OF PRESENT ILLNESS: This is a 24-year-old male with history of substance abuse, seizure disorder, who came to the hospital with altered mentation. [place] hotel with crushed pills around and paraphernalia. Nephrology consulted for acute kidney injury. The patient was intubated, seen in ICU. No family members are available. PAST MEDICAL HISTORY: Positive for substance abuse, hepatitis C, seizure disorder. PAST SURGICAL HISTORY: None. HOME MEDICATIONS: Reviewed. ALLERGIES: NO KNOWN DRUG ALLERGIES. SOCIAL HISTORY: History of illicit drug abuse including cocaine, marijuana, and methamphetamine. FAMILY HISTORY: Positive for hypertension. REVIEW OF SYSTEMS: Could not be obtained as he is intubated. PHYSICAL EXAMINATION: GENERAL: This is a well-built male, intubated. VITAL SIGNS: Temperature 99.7, pulse 105, respiratory rate 18, and blood pressure . HEENT: Intubated. CV: S1 and S2 heard. RESPIRATORY: Clear. GI: Abdomen is soft. MUSCULOSKELETAL: No edema. DERMATOLOGIC: No skin rash. NEUROLOGICAL: Intubated. LABORATORY DATA: Hemoglobin is 14.8, potassium is 6, BUN is 20, and creatinine is 1.77, potassium went up to 6.3. ASSESSMENT AND PLAN: 1. Acute kidney injury. Creatinine is better. 2. Lactic acidosis. 3. Acidosis. 4. Hyperkalemia most likely from acidosis. We will start on bicarb drip. 5. Acute hypoxic respiratory failure. 6. Edema, controlled. 7. History of hypertension, stable. Prognosis guarded. We will start on bicarb drip and we will follow. Job ID: [id number]
--- NOTE | 2019-10-13 11:12 | PRG ---
DATE OF SERVICE: 10/13/2019 SERVICE: Pulmonary Medicine. INTERVAL HISTORY: The patient is doing fine from respiratory standpoint. He has been weaned to room air. He denies any current chest discomfort, nausea, or vomiting. Otherwise, there has been no interval change to his condition. PHYSICAL EXAMINATION: VITAL SIGNS: Afebrile, pulse 112, blood pressure 130/61, respirations 22, and saturation 96% on room air. GENERAL: The patient is awake and alert, in no apparent distress. LUNGS: Good air entry bilaterally. No wheezing, rhonchi, or crackles are present. HEART: Normal rate, regular. ABDOMEN: Soft, nontender, and nondistended. Bowel sounds are positive. MUSCULOSKELETAL: No cyanosis or clubbing. No pitting in the bilateral lower extremities. NEUROLOGIC: Grossly nonfocal. LABORATORY DATA: WBC 8.8, hemoglobin 11.8, and platelets 194,000. Basic metabolic profile is essentially unremarkable with a creatinine that is improving, CK is improving, troponin is downtrending. Urinalysis is unremarkable. Respiratory culture is unremarkable. IMAGING: Echocardiogram shows normal ejection fraction. Mitral and aortic valves are structurally normal. Normal left atrium size. ASSESSMENT: 1. Acute hypoxic respiratory failure. 2. Septic shock, resolved. 3. Community-acquired pneumonia secondary to overt aspiration. 4. Acute kidney injury, resolved. 5. Elevated CK, resolving. 6. Shock liver, improving. 7. Polysubstance drug abuse. DISCUSSION AND PLAN: The patient is doing fine from a respiratory standpoint. At this point, he is stable for transition out of the ICU. Truth be told, he is stable for discharge. He has no further requirements for inpatient Pulmonary Critical Care opinion, and I will sign off. Please call with additional questions or concerns through time. Job ID: [id number] [facility]
[2019-10-13 13:26] VITALS: BMI 29.9
--- NOTE | 2019-10-13 15:13 | PDOC.HOSPP ---
- Subjective Subjective: Seen and examined. Clinically improving. Patient extubated, breathing comfortably on room air. Patient alert and oriented times three and has a fair insight into clinical condition. Patients mother at bedside, time was given for questions, all answered in detail. Patient transitioned to oral medications. Patient recommended safe for discharge to psychiatric facility. Discuss case with mental health assessment nurse who will look at inpatient treatment at [facility] when a bed is available. - Objective Vital Signs & Weight: Vital Signs (12 hours) Temp Pulse Resp BP Pulse Ox 10/13/19 14:16 100 10/13/19 11:37 98.4 F 10/13/19 11:25 98.1 F 78 18 128/75 100 10/13/19 07:08 95 10/13/19 07:00 98.2 F 10/13/19 04:00 98.2 F Weight Admit Weight 208 lb Weight 208 lb 15.971 oz Most Recent Monitor Data Heart Rate from ECG 112 NIBP 130/61 NIBP BP-Mean 84 Respiration from ECG 22 SpO2 96 I&O: 10/12/19 10/13/19 10/14/19 06:59 06:59 06:59 Intake Total 2507 3048 Output Total 3470 2390 0 Balance -963 658 0 Result Diagrams: 10/13/19 03:45 10/13/19 03:45 Radiology Reviewed by me: Yes Hospitalist ROS - Review of Systems All other systems reviewed; all pertinent +/- noted in HPI/Subj - Medication Medications: Active Medications Generic Name Dose Route Start Last Admin Trade Name Freq PRN Reason Stop Dose Admin Acetaminophen 650 mg 10/11/19 14:07 10/13/19 04:15 Tylenol PO 650 mg Q4H PRN Administration Headache/Fever/Mild Pain (1-3) Amoxicillin/Clavulanate Potassium 875 mg 10/12/19 21:00 10/13/19 08:32 Augmentin PO 10/15/19 21:01 875 mg Q12HR ASHLEY Administration Enoxaparin Sodium 40 mg 10/12/19 09:00 10/13/19 08:32 Lovenox SC 40 mg 0900 ASHLEY Administration Risperidone 1 mg 10/12/19 21:00 10/13/19 08:32 Risperidone PO 1 mg BID ASHLEY Administration Sterile Water 1.2 ml 10/12/19 11:54 10/12/19 13:01 Water For Injection FS 1.2 ml PRN PRN Administration RECONSTITUTION Ziprasidone 20 mg 10/12/19 11:51 10/12/19 13:00 Geodon IM 20 mg Q6H PRN Administration Agitation - Exam General Appearance: NAD, awake alert Eye: anicteric sclera ENT: normocephalic atraumatic, moist mucosa Neck: supple, symmetric, no lymphadenopathy Heart: no murmur, no gallops, no rubs Respiratory: no rales, normal chest expansion, no tachypnea, rhonchi, wheezes ( few faint) Gastrointestinal: soft, non-tender, no guarding, no rigidity Extremities: no edema Skin: no lesions, no rashes Neurological: cranial nerve grossly intact, no focal deficits Musculoskeletal: normal tone, normal strength Psychiatric: normal affect, normal behavior, A&O x 3 Hosp A/P (1) Acute respiratory failure with hypoxemia Code(s): J96.01 - ACUTE RESPIRATORY FAILURE WITH HYPOXIA Status: Acute (2) Drug overdose, intentional Code(s): T50.902A - POISONING BY UNSP DRUG/MEDS/BIOL SUBST, SELF-HARM, INIT Status: Acute (3) Suicide attempt Status: Acute (4) Methamphetamine abuse Code(s): F15.10 - OTHER STIMULANT ABUSE, UNCOMPLICATED Status: Acute (5) Rhabdomyolysis Code(s): M62.82 - RHABDOMYOLYSIS Status: Acute (6) Septic shock Code(s): A41.9 - SEPSIS, UNSPECIFIED ORGANISM; R65.21 - SEVERE SEPSIS WITH SEPTIC SHOCK Status: Acute (7) Seizure Code(s): R56.9 - UNSPECIFIED CONVULSIONS Status: Acute - Plan Plan: Intensive care unit, stable for D/g to Medical unit Mental health assessment - with telling both his parents less than 24 hours prior to the event "if things get worse I'll just kill myself" Patient will need inpatient psychiatric care pulmonology/critical-care consultation, recommendations appreciated nephrology consultation, recommendations appreciated Extubated, tolerating room air Pulm specific ABX Follow culture data breathing treatments echocardiogram to monitor for vegetation PRN medications to keep the patient calm Continue risperidone Wound care consult for post. neck lesion, Eval and treat acetaminophen levels and salicylate levels are negative suicide attempt, will require inpatient psychiatric treatment G.I. prophylaxis DVT prophylaxis disposition: prognosis guarded
--- NOTE | 2019-10-13 16:36 | PRG ---
DATE OF SERVICE: 10/13/2019 SUBJECTIVE: Patient was seen and examined at bedside and overnight events noted. Patient denies any shortness of breath or chest pain or palpitation. No history of nausea or vomiting or diarrhea or fever or chills or cramps. OBJECTIVE: GENERAL: This is a well-built male, in no apparent distress. VITAL SIGNS: Temperature 98.1. Heart rate 70. Respiratory rate 18. Blood pressure 138/75. HEENT: Atraumatic, normocephalic. Oral mucosa is moist NECK: Supple. CARDIOVASCULAR: S1, S2 heard. Rate and rhythm regular. RESPIRATORY: Clear to auscultation. GASTROINTESTINAL: Abdomen is soft. MUSCULOSKELETAL: No tenderness. No edema. DERMATOLOGIC: No skin rash. NEUROLOGIC: Alert and awake and oriented X3. No focal neurologic deficits. Moving all the extremities. PSYCHIATRIC: Mood and affect normal. LABORATORY DATA: Potassium is 3.7, BUN is 12, and creatinine 0.7. ASSESSMENT AND PLAN: 1. Acute kidney injury, resolved. 2. Hyperkalemia, better. 3. Acidosis, stable. 4. Edema, controlled. 5. Lactic acidosis, better. The patient was counseled to avoid renal insults in the future. Family was also counseled, advised to have proper psychiatric help to prevent these kind of episodes. I will sign off. Please call back with any questions. Job ID: [id number]
[2019-10-14] MEDS ORDERED: PARoxetine 20 MG TAB ONE (10:26)
[2019-10-14] MEDS: Amoxicillin/Potassium Clav 875 MG TAB PO SCH ×2 (10:44→20:28)
[2019-10-14] MEDS: Enoxaparin Sodium 40 MG/0.4 ML SYRINGE SC SCH (10:45)
[2019-10-14] MEDS: risperiDONE 1 MG TAB PO SCH ×3 (10:45→20:28)
--- NOTE | 2019-10-14 12:58 | PDOC.HOSPP ---
- Subjective Subjective: Seen and examined. Patient clinically improving. Still with some cough and wheezing that is improved with breathing treatments. Patient with skin breakdown on the back of the neck that has been addressed by wound care and recommended topical bacitracin. Otherwise patient is having worse anxiety and agitation. Cravings. Adjusting psychiatric regimen. Patient's mother and family at bedside, time was given for questions, all answered in detail. Patient stable for inpatient psychiatric care when bed is available. - Objective Vital Signs & Weight: Vital Signs (12 hours) Temp Pulse Resp BP Pulse Ox 10/14/19 10:50 68 16 97 10/14/19 08:00 98.3 F 76 18 118/71 96 10/14/19 04:00 98.2 F 73 20 136/96 H 96 Weight Admit Weight 208 lb Weight 211 lb 1 oz Most Recent Monitor Data Heart Rate from ECG 112 NIBP 130/61 NIBP BP-Mean 84 Respiration from ECG 22 SpO2 96 I&O: 10/13/19 10/14/19 10/15/19 06:59 06:59 06:59 Intake Total 3048 600 Output Total 2390 0 Balance 658 600 Result Diagrams: 10/13/19 03:45 10/13/19 03:45 Radiology Reviewed by me: Yes Hospitalist ROS - Review of Systems All other systems reviewed; all pertinent +/- noted in HPI/Subj - Medication Medications: Active Medications Generic Name Dose Route Start Last Admin Trade Name Freq PRN Reason Stop Dose Admin Acetaminophen 650 mg 10/11/19 14:07 10/13/19 18:29 Tylenol PO 650 mg Q4H PRN Administration Headache/Fever/Mild Pain (1-3) Albuterol/Ipratropium 3 ml 10/11/19 14:10 10/14/19 10:50 Duoneb NEB 3 ml [id number] PRN Administration SOB &/or Wheezing Amoxicillin/Clavulanate Potassium 875 mg 10/12/19 21:00 10/14/19 10:44 Augmentin PO 10/15/19 21:01 875 mg Q12HR ASHLEY Administration Enoxaparin Sodium 40 mg 10/12/19 09:00 10/14/19 10:45 Lovenox SC 40 mg 0900 ASHLEY Administration Risperidone 2 mg 10/14/19 21:00 10/14/19 10:45 Risperidone PO 2 mg BID ASHLEY Administration Sterile Water 1.2 ml 10/12/19 11:54 10/12/19 13:01 Water For Injection FS 1.2 ml PRN PRN Administration RECONSTITUTION Ziprasidone 20 mg 10/12/19 11:51 10/12/19 13:00 Geodon IM 20 mg Q6H PRN Administration Agitation - Exam General Appearance: NAD, awake alert Eye: PERRL ENT: normocephalic atraumatic, moist mucosa Neck: supple, symmetric, no lymphadenopathy Heart: no murmur, no gallops, no rubs Respiratory: CTAB, no wheezes, no rales, no ronchi, normal chest expansion Gastrointestinal: soft, non-tender, no guarding, no rigidity Extremities: no edema Skin: no lesions, no rashes Neurological: cranial nerve grossly intact, no weakness Musculoskeletal: no muscle wasting, generalized weakness Psychiatric: normal affect, A&O x 3 Hosp A/P (1) Acute respiratory failure with hypoxemia Code(s): J96.01 - ACUTE RESPIRATORY FAILURE WITH HYPOXIA Status: Acute (2) Drug overdose, intentional Code(s): T50.902A - POISONING BY UNSP DRUG/MEDS/BIOL SUBST, SELF-HARM, INIT Status: Acute (3) Suicide attempt Status: Acute (4) Methamphetamine abuse Code(s): F15.10 - OTHER STIMULANT ABUSE, UNCOMPLICATED Status: Acute (5) Rhabdomyolysis Code(s): M62.82 - RHABDOMYOLYSIS Status: Acute (6) Septic shock Code(s): A41.9 - SEPSIS, UNSPECIFIED ORGANISM; R65.21 - SEVERE SEPSIS WITH SEPTIC SHOCK Status: Acute (7) Seizure Code(s): R56.9 - UNSPECIFIED CONVULSIONS Status: Acute - Plan Plan: Medical unit - Stable for psychiatric facility Mental health assessment - with telling both his parents less than 24 hours prior to the event "if things get worse I'll just kill myself" Patient will need inpatient psychiatric care pulmonology/critical-care consultation, recommendations appreciated nephrology consultation, recommendations appreciated Extubated, tolerating room air Pulm specific ABX Follow culture data breathing treatments echocardiogram to monitor for vegetation PRN medications to keep the patient calm Increase risperidone Add Hydroxyzine for anxiety Wound care consult for post. neck lesion, Eval and treat - recommendations appreciated acetaminophen levels and salicylate levels are negative suicide attempt, will require inpatient psychiatric treatment G.I. prophylaxis DVT prophylaxis disposition: prognosis guarded
[2019-10-14] MEDS: Bacitracin 1 PK TOP SCH (20:28)
[2019-10-14] MEDS: Acetaminophen 325 MG TAB PO PRN (20:30)
[2019-10-14] MEDS: hydrOXYzine 25 MG TAB PO PRN (20:30)
[2019-10-15] MEDS: Amoxicillin/Potassium Clav 875 MG TAB PO SCH ×2 (09:57→19:53)
[2019-10-15] MEDS: risperiDONE 1 MG TAB PO SCH ×2 (09:57→19:54)
[2019-10-15] MEDS: Bacitracin 1 PK TOP SCH ×2 (09:58→19:54)
[2019-10-15] MEDS: Enoxaparin Sodium 40 MG/0.4 ML SYRINGE SC SCH (09:58)
[2019-10-15] MEDS: hydrOXYzine 25 MG TAB PO PRN ×2 (10:01→19:54)
--- NOTE | 2019-10-15 14:04 | PDOC.HOSPP ---
- Subjective Subjective: Seen and examined. Still with some mild shortness of breath that is improved with breathing treatments, I told him this can continue for the upcoming week or two status post intubation. Less anxious. Still feeling a bit stir crazy like he needs to get out of here, patient is ready to go to psychiatric facility and continue to get well. Family at bedside, time was given for questions, all answered in detail. Patient and family are happy with plan of care. - Objective Vital Signs & Weight: Vital Signs (12 hours) Temp Pulse Resp BP Pulse Ox 10/15/19 08:00 98.2 F 101 H 18 106/61 97 Weight Admit Weight 208 lb Weight 211 lb 1 oz Most Recent Monitor Data Heart Rate from ECG 112 NIBP 130/61 NIBP BP-Mean 84 Respiration from ECG 22 SpO2 96 I&O: 10/14/19 10/15/19 10/16/19 06:59 06:59 06:59 Intake Total 600 240 Output Total 0 Balance 600 240 Result Diagrams: 10/13/19 03:45 10/13/19 03:45 Radiology Reviewed by me: Yes Hospitalist ROS - Review of Systems All other systems reviewed; all pertinent +/- noted in HPI/Subj - Medication Medications: Active Medications Generic Name Dose Route Start Last Admin Trade Name Freq PRN Reason Stop Dose Admin Acetaminophen 650 mg 10/11/19 14:07 10/14/19 20:30 Tylenol PO 650 mg Q4H PRN Administration Headache/Fever/Mild Pain (1-3) Albuterol/Ipratropium 3 ml 10/11/19 14:10 10/15/19 10:45 Duoneb NEB 3 ml [id number] PRN Administration SOB &/or Wheezing Amoxicillin/Clavulanate Potassium 875 mg 10/12/19 21:00 10/15/19 09:57 Augmentin PO 10/15/19 21:01 875 mg Q12HR ASHLEY Administration Bacitracin 1 pk 10/14/19 21:00 10/15/19 09:58 Bacitracin TOP 1 pk BID ASHLEY Administration Enoxaparin Sodium 40 mg 10/12/19 09:00 10/15/19 09:58 Lovenox SC 40 mg 0900 ASHLEY Administration Hydroxyzine HCl 50 mg 10/14/19 10:32 10/15/19 10:01 Atarax PO 50 mg Q4H PRN Administration Anxiety/Agitation Risperidone 2 mg 10/14/19 21:00 10/15/19 09:57 Risperidone PO 2 mg BID ASHLEY Administration Sterile Water 1.2 ml 10/12/19 11:54 10/12/19 13:01 Water For Injection FS 1.2 ml PRN PRN Administration RECONSTITUTION Ziprasidone 20 mg 10/12/19 11:51 10/12/19 13:00 Geodon IM 20 mg Q6H PRN Administration Agitation - Exam General Appearance: NAD Eye: PERRL, anicteric sclera ENT: normocephalic atraumatic, moist mucosa Neck: supple, symmetric, no lymphadenopathy Heart: RRR, no murmur, no gallops, no rubs Respiratory: CTAB, no wheezes, no rales, no ronchi, normal chest expansion, no tachypnea Gastrointestinal: soft, non-tender, non-distended, no guarding, no rigidity Extremities: no edema Skin: no rashes Skin - other findings: Post neck pimple was picked while on Meth, now healing Neurological: cranial nerve grossly intact, no focal deficits Musculoskeletal: generalized weakness Psychiatric: normal affect, normal behavior, A&O x 3 Psychiatric - other findings: Anxious Hosp A/P (1) Acute respiratory failure with hypoxemia Code(s): J96.01 - ACUTE RESPIRATORY FAILURE WITH HYPOXIA Status: Acute (2) Drug overdose, intentional Code(s): T50.902A - POISONING BY UNSP DRUG/MEDS/BIOL SUBST, SELF-HARM, INIT Status: Acute (3) Suicide attempt Status: Acute (4) Methamphetamine abuse Code(s): F15.10 - OTHER STIMULANT ABUSE, UNCOMPLICATED Status: Acute (5) Rhabdomyolysis Code(s): M62.82 - RHABDOMYOLYSIS Status: Acute (6) Septic shock Code(s): A41.9 - SEPSIS, UNSPECIFIED ORGANISM; R65.21 - SEVERE SEPSIS WITH SEPTIC SHOCK Status: Acute (7) Seizure Code(s): R56.9 - UNSPECIFIED CONVULSIONS Status: Acute - Plan Plan: Medical unit - Stable for psychiatric facility Mental health assessment - with telling both his parents less than 24 hours prior to the event "if things get worse I'll just kill myself" Patient will need inpatient psychiatric care pulmonology/critical-care consultation, recommendations appreciated nephrology consultation, recommendations appreciated Extubated, tolerating room air Pulm specific ABX Follow culture data breathing treatments echocardiogram to monitor for vegetation PRN medications to keep the patient calm Continue risperidone Continue Hydroxyzine PRN anxiety Wound care consult for post. neck lesion, Eval and treat - recommendations appreciated acetaminophen levels and salicylate levels are negative suicide attempt, will require inpatient psychiatric treatment G.I. prophylaxis DVT prophylaxis disposition: prognosis improved if can stay sober
[2019-10-15] MEDS: Acetaminophen 325 MG TAB PO PRN (19:53)
[2019-10-16] MEDS: risperiDONE 1 MG TAB PO SCH (08:56)
[2019-10-16] MEDS: Bacitracin 1 PK TOP SCH ×2 (08:56→20:35)
[2019-10-16] MEDS: Enoxaparin Sodium 40 MG/0.4 ML SYRINGE SC SCH (08:56)
[2019-10-16] MEDS: hydrOXYzine 25 MG TAB PO PRN ×3 (08:57→20:35)
--- NOTE | 2019-10-16 12:55 | PDOC.HOSPP ---
- Subjective Subjective: Seen and examined. Medically stable for lower level of care. Pending psychiatric bed placement. Discussed the importance of abstinence from drug and alcohol. Discussed Alcoholics Anonymous and Narcotics Anonymous. Patient states that he has been to these programs in the past. I do believe that Narcotics Anonymous would benefit him and I conveyed this to them. Patient states he wants to get healthy and wants to get well. Time was given for questions, all answered in detail. - Objective Vital Signs & Weight: Vital Signs (12 hours) Temp Pulse Resp BP Pulse Ox 10/16/19 11:26 122 H 20 98 10/16/19 08:11 94 L 10/16/19 08:00 94 L 10/16/19 07:46 98.3 F 74 18 93/60 94 L Weight Admit Weight 208 lb Weight 211 lb 1 oz Most Recent Monitor Data Heart Rate from ECG 112 NIBP 130/61 NIBP BP-Mean 84 Respiration from ECG 22 SpO2 96 I&O: 10/15/19 10/16/19 10/17/19 06:59 06:59 06:59 Intake Total 720 240 Balance 720 240 Result Diagrams: 10/13/19 03:45 10/13/19 03:45 Radiology Reviewed by me: Yes Hospitalist ROS - Review of Systems All other systems reviewed; all pertinent +/- noted in HPI/Subj - Medication Medications: Active Medications Generic Name Dose Route Start Last Admin Trade Name Freq PRN Reason Stop Dose Admin Acetaminophen 650 mg 10/11/19 14:07 10/15/19 19:53 Tylenol PO 650 mg Q4H PRN Administration Headache/Fever/Mild Pain (1-3) Albuterol/Ipratropium 3 ml 10/11/19 14:10 10/16/19 11:26 Duoneb NEB 3 ml [id number] PRN Administration SOB &/or Wheezing Bacitracin 1 pk 10/14/19 21:00 10/16/19 08:56 Bacitracin TOP 1 pk BID ASHLEY Administration Enoxaparin Sodium 40 mg 10/12/19 09:00 10/16/19 08:56 Lovenox SC 40 mg 0900 ASHLEY Administration Hydroxyzine HCl 50 mg 10/14/19 10:32 10/16/19 08:57 Atarax PO 50 mg Q4H PRN Administration Anxiety/Agitation Risperidone 2 mg 10/14/19 21:00 10/16/19 08:56 Risperidone PO 2 mg BID ASHLEY Administration Sterile Water 1.2 ml 10/12/19 11:54 10/12/19 13:01 Water For Injection FS 1.2 ml PRN PRN Administration RECONSTITUTION Ziprasidone 20 mg 10/12/19 11:51 10/12/19 13:00 Geodon IM 20 mg Q6H PRN Administration Agitation - Exam General Appearance: NAD, awake alert Eye: PERRL, anicteric sclera ENT: normocephalic atraumatic, moist mucosa Neck: supple, symmetric, no lymphadenopathy Heart: RRR, no murmur, no gallops Respiratory: CTAB, no wheezes, no rales, no ronchi Gastrointestinal: soft, non-tender, non-distended Extremities: no edema Skin: no rashes Skin - other findings: Posterior neck infection improving Neurological: cranial nerve grossly intact, no focal deficits Musculoskeletal: normal strength, no muscle wasting Psychiatric: normal affect, normal behavior, A&O x 3 Hosp A/P (1) Acute respiratory failure with hypoxemia Code(s): J96.01 - ACUTE RESPIRATORY FAILURE WITH HYPOXIA Status: Acute (2) Drug overdose, intentional Code(s): T50.902A - POISONING BY UNSP DRUG/MEDS/BIOL SUBST, SELF-HARM, INIT Status: Acute (3) Suicide attempt Status: Acute (4) Methamphetamine abuse Code(s): F15.10 - OTHER STIMULANT ABUSE, UNCOMPLICATED Status: Acute (5) Rhabdomyolysis Code(s): M62.82 - RHABDOMYOLYSIS Status: Acute (6) Septic shock Code(s): A41.9 - SEPSIS, UNSPECIFIED ORGANISM; R65.21 - SEVERE SEPSIS WITH SEPTIC SHOCK Status: Acute (7) Seizure Code(s): R56.9 - UNSPECIFIED CONVULSIONS Status: Acute - Plan Plan: Medical unit - Stable for psychiatric facility Mental health assessment - with telling both his parents less than 24 hours prior to the event "if things get worse I'll just kill myself" Patient will need inpatient psychiatric care pulmonology/critical-care consultation, recommendations appreciated nephrology consultation, recommendations appreciated Extubated, tolerating room air Pulm specific ABX Follow culture data breathing treatments echocardiogram to monitor for vegetation PRN medications to keep the patient calm Continue risperidone Continue Hydroxyzine PRN anxiety Wound care consult for post. neck lesion, Eval and treat - recommendations appreciated acetaminophen levels and salicylate levels are negative suicide attempt, will require inpatient psychiatric treatment G.I. prophylaxis DVT prophylaxis disposition: prognosis improved if can stay sober. Discussed the benefits of Narcotic anonymous.
[2019-10-16] MEDS ORDERED: Chloraseptic Spray 180 ml Bottle PO PRN (17:12)
--- NOTE | 2019-10-16 17:17 | PDOC.EVN ---
Event Note - Event Note Event Note: Patient pending transfer to [facility] psychiatric facility for suicide attempt with drug overdose. No benzodiazepine, pain medication, or any controlled substance to be ordered for this patient. Psychiatric medications increased appropriately. Cravings are coming back now.
[2019-10-16] MEDS: Acetaminophen 325 MG TAB PO PRN (20:38)
[2019-10-16] MEDS ORDERED: risperiDONE 3 MG TAB PO SCH (21:00)
[2019-10-17 07:53] VITALS: BP 99/53; TEMP 98
[2019-10-17] MEDS: Bacitracin 1 PK TOP SCH (08:08)
[2019-10-17] MEDS: Enoxaparin Sodium 40 MG/0.4 ML SYRINGE SC SCH (08:09)
[2019-10-17] MEDS: hydrOXYzine 25 MG TAB PO PRN (08:14)
[2019-10-17] MEDS ORDERED: risperiDONE 3 MG TAB PO SCH (09:00)
--- NOTE | 2019-10-17 20:50 | DIS ---
DATE OF ADMISSION: 10/11/2019 DATE OF DISCHARGE: 10/17/2019 REASON FOR HOSPITALIZATION: Drug overdose. SIGNIFICANT FINDINGS: The patient was found to have acute respiratory failure with hypoxia requiring intubation secondary to drug overdose. PROCEDURES PERFORMED AND TREATMENTS RENDERED: The patient was admitted to the intensive care unit under the care of mutuel department manager-please see full consultation notes and progress notes for details. The patient required emergent bronchoscopy on the day of admission on 10/11/2019-please see full operative report from Dr. Burris for details. Operation was successful and the patient had mucous plugging that was removed. Mucous plug was sent for culture and sensitivity. The patient was admitted to the intensive care unit on ventilator support, IV broad-spectrum antibiotics, and all appropriate medical therapy. The patient was safely trialed and liberated from the ventilator. The patient with renal insufficiency on admission, was seen and evaluated by Nephrology-please see full consultation notes and progress notes for details. The patient's renal function normalized with IV fluid resuscitation. The patient's antibiotics were titrated appropriately by Dr. Burris with Pulmonology/Critical Care and he completed a full course of oral antibiotics in the hospital. With the patient having a suicide attempt and telling both of his parents less than 24 hours prior to this event that if things get worse for him in his life, he is simply going to kill himself, we were obligated to help this patient. Efforts were made by myself and the Case Management to set up the patient with transfer to inpatient psychiatric facility. The patient was accepted to inpatient psychiatric facility on 10/17/2019, after he was cleared by all medical specialists. This patient with repeat episodes of drug use will require a full course of inpatient psychiatric care followed by inpatient drug and alcohol counseling if he would like to live. I explicitly had these conversations with the patient and his mother at bedside daily while we were waiting for inpatient psychiatric care. The patient's psychiatric medications were uptitrated appropriately while he was hospitalized and he was calm and not requiring any physical or chemical restraints for several days before admission to the psychiatric facility. I personally discussed the case with admitting psychiatrist who agrees for inpatient treatment. CONDITION ON DISCHARGE: Stable. SPECIFIC INSTRUCTIONS FOR THE PATIENT/FAMILY: 1. The patient is recommended to complete a full course of inpatient psychiatric care. 2. After the patient has been deemed safe by inpatient psychiatrist, he is recommended to have drug and alcohol counseling on an inpatient versus outpatient basis. 3. The patient is recommended to take all medications as directed, to be re-titrated as appropriate by psychiatrist. 4. The patient is recommended to abstain from all drug and alcohol use. 5. The patient is recommended to return to acute care hospital immediately if signs or symptoms return, worsen, or any other new symptoms occur. DISCHARGE MEDICATIONS: 1. Risperidone 3 mg p.o. b.i.d. 2. Hydroxyzine 75 mg p.o. q.4 hours p.r.n. anxiety. 3. Melatonin 3 mg p.o. at bedtime. 4. Ipratropium bromide/albuterol nebulizer solution p.o. q.4 hours p.r.n. shortness of breath. 5. Bacitracin ointment apply topically b.i.d. to the back of the neck for the next 3 days and keep the area clean and dry. TIME SPENT: Greater than 40 minutes spent coordinating care and discharge process for this patient. Job ID: [id number]
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
--- NOTE | 2019-10-25 15:43 | EKG ---
Test Reason : OD Blood Pressure : / mmHG Vent. Rate : 107 BPM Atrial Rate : 107 BPM P-R Int : 142 ms QRS Dur : 102 ms QT Int : 384 ms P-R-T Axes : 043 064 028 degrees QTc Int : 512 ms Sinus tachycardia Septal infarct , age undetermined Abnormal ECG Confirmed by NIMO WINKLER ([id number]), web content editor IRINEO PATTON ([id number]) on 10/25/2019 3:42:45 PM Referred By: Confirmed By:NIMO Garnett
== END 2019-10-17 15:15 | DRG 917 ==
LOC: ERS 11:09 → CCU 13:16 → T4-B 10-13 12:27
PROVIDERS: ADMIT Emergency Medicine; ATTEND Internal Medicine
PROC: 5A1935Z Respiratory Ventilation, Less than 24 Consecutive Hours (ICD-10-PCS; principal; 2019-10-11)
PROC: 3E02340 Introduction of Influenza Vaccine into Muscle, Percutaneous Approach (ICD-10-PCS; 2019-10-11)
PROC: 3E043XZ Introduction of Vasopressor into Central Vein, Percutaneous Approach (ICD-10-PCS; 2019-10-11)
PROC: 02HV33Z Insertion of Infusion Device into Superior Vena Cava, Percutaneous Approach (ICD-10-PCS; 2019-10-11)
PROC: 0BH17EZ Insertion of Endotracheal Airway into Trachea, Via Natural or Artificial Opening (ICD-10-PCS; 2019-10-11)
PROC: 0B938ZZ Drainage of Right Main Bronchus, Via Natural or Artificial Opening Endoscopic (ICD-10-PCS; 2019-10-11)
DX: T65.92XA Toxic effect of unspecified substance, intentional self-harm, initial encounter (principal); J96.01 Acute respiratory failure with hypoxia; A41.9 Sepsis, unspecified organism; R65.21 Severe sepsis with septic shock; K72.00 Acute and subacute hepatic failure without coma; G93.41 Metabolic encephalopathy; J69.0 Pneumonitis due to inhalation of food and vomit; E87.2 Acidosis; J98.11 Atelectasis; M62.82 Rhabdomyolysis; G40.909 Epilepsy, unspecified, not intractable, without status epilepticus; F13.10 Sedative, hypnotic or anxiolytic abuse, uncomplicated; F14.10 Cocaine abuse, uncomplicated; F11.10 Opioid abuse, uncomplicated; E87.5 Hyperkalemia; F15.10 Other stimulant abuse, uncomplicated; Z23 Encounter for immunization; Z78.1 Physical restraint status; Z79.899 Other long term (current) drug therapy
CPT/HCPCS: 31500; 36415; 36416; 36556; 51702; 70450; 71045; 80048; 80053; 80306; 80307; 81003; 81015; 82550; 82553; 82805; 83605; 83690; 84484; 85014; 85018; 85025; 85610; 85730; 87070; 87205; 90471; 90686; 93005; 93306; 94002; 94003; 94640; 96361; 96365; 96366; 96368; 96374; 99292; G0008; J0692; J1650; J2060; J2310; J2543; J2704; J2920; J3010; J3370; J3486; J3490; J7050; J7070; J7620; S0028

== ENCOUNTER 2020-08-20 19:48 | Emergency (ER) | payer SELFPAY ==
[~2020-08-20 19:48] MED LIST: Iopamidol-370 76% 500 ML 1 ML ONE
[2020-08-20 20:12] LABS: #Basophils 0.1 thou/uL (0.0-0.2); #Eosinphils 0.3 thou/uL (0.0-0.7); #Lymphocytes 1.7 thou/uL (1.20-3.40); #Monocytes 0.8 thou/uL (0.11-0.59); #Neutrophils 4.2 thou/uL (1.40-6.50); %Eosinophils 4.3 % (0.0-10.0); %Lymphocytes 23.7 % (21.0-51.0); %Monocytes 11.4 % (0.0-10.0); %Neutrophils 59.6 % (42.0-75.0); Mean Corpuscular HGB CONC 35.2 g/dL (32.0-36.0); Mean Corpuscular Hemoglobin 30.8 pg (27.0-31.0); Mean Corpuscular Volume 87.6 fL (78.0-98.0); Mean Platelet Volume 9.7 fL (7.4-10.4); Platelet Count 150 thou/uL (130-400); RBC Distribution Width 12.6 % (11.5-14.5); Red Blood Cell (RBC) Count 4.55 mill/uL (4.70-6.10)
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
[2020-08-20 20:33] LABS: ALT (SGPT) Less than 7 U/L (8-55); AST (SGOT) 12 U/L (5-34); Albumin 4.1 g/dL (3.5-5.0); Alcohol Less than 10 mg/dL (Less than 10); Alkaline Phosphatase 49 U/L (40-110); Anion Gap 14 mmol/L (10-20); BUN (Urea Nitrogen) 10 mg/dL (8.9-20.6); Bilirubin, Total 1.9 mg/dL (0.2-1.2); Calc. Creatinine Clearance 0 mL/min (70-130); Carbon Dioxide 23 mmol/L (22-29); Chloride 106 mmol/L (98-107); Estimated GFR-MDRD 71; Globulin 2.5 g/dL (2.4-3.5); Glucose 146 mg/dL (70-105); Potassium 3.3 mmol/L (3.5-5.1); Protein, Total 6.6 g/dL (6.0-8.3); Sodium 140 mmol/L (136-145)
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
[2020-08-20] MEDS ORDERED: Ketorolac Tromethamine 30 MG/ML VIAL ONE (21:01)
[2020-08-20] MEDS ORDERED: Boostrix 0.5 ML (Tdap) VIAL ONE (21:01)
[2020-08-20] MEDS ORDERED: Morphine 4 MG/ML VIAL ONE (21:01)
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
--- NOTE | 2020-08-28 15:55 | EKG ---
Test Reason : Blood Pressure : / mmHG Vent. Rate : 100 BPM Atrial Rate : 100 BPM P-R Int : 138 ms QRS Dur : 098 ms QT Int : 334 ms P-R-T Axes : 049 069 050 degrees QTc Int : 430 ms Normal sinus rhythm RSR' or QR pattern in V1 suggests right ventricular conduction delay Borderline ECG Confirmed by SUNI FLORES ([id number]), medical editor IRINEO PATTON ([id number]) on 08/28/2020 3:55:15 PM Referred By: Confirmed By:SUNI FLORES
== END 2020-08-20 23:30 | disposition home or self-care (01) ==
LOC: ERS 19:48
DX: S06.0X9A Concussion with loss of consciousness of unspecified duration, initial encounter (principal); S02.5XXA Fracture of tooth (traumatic), initial encounter for closed fracture; S90.02XA Contusion of left ankle, initial encounter; S80.11XA Contusion of right lower leg, initial encounter; F41.9 Anxiety disorder, unspecified; F32.9 Major depressive disorder, single episode, unspecified; F17.200 Nicotine dependence, unspecified, uncomplicated
CPT/HCPCS: 70450; 70486; 71045; 72125; 74177; 80053; 80307; 85025; 90471; 90715; 93005; 96365; 96375; G0390; J0690; J1885; J2270; Q9967

== ENCOUNTER 2020-09-11 01:24 | Emergency (ER) | payer SELFPAY ==
[2020-09-11 03:26] LABS: #Basophils 0.1 thou/uL (0.0-0.2); #Eosinphils 0.2 thou/uL (0.0-0.7); #Lymphocytes 2.4 thou/uL (1.20-3.40); #Monocytes 1.1 thou/uL (0.11-0.59); #Neutrophils 8.9 thou/uL (1.40-6.50); %Basophils 0.8 % (0.0-1.0); %Eosinophils 1.2 % (0.0-10.0); %Lymphocytes 18.7 % (21.0-51.0); %Monocytes 8.7 % (0.0-10.0); %Neutrophils 70.5 % (42.0-75.0); Hemoglobin 16.1 g/dL (14.0-18.0); Mean Corpuscular HGB CONC 33.8 g/dL (32.0-36.0); Mean Corpuscular Hemoglobin 30.5 pg (27.0-31.0); Mean Corpuscular Volume 90.2 fL (78.0-98.0); Mean Platelet Volume 8.6 fL (7.4-10.4); Platelet Count 281 thou/uL (130-400); RBC Distribution Width 13.6 % (11.5-14.5); Red Blood Cell (RBC) Count 5.29 mill/uL (4.70-6.10); White Blood Cell (WBC) Count 12.6 thou/uL (4.8-10.8)
[2020-09-11 03:49] LABS: ALT (SGPT) 22 U/L (8-55); AST (SGOT) 40 U/L (5-34); Albumin 4.9 g/dL (3.5-5.0); Alkaline Phosphatase 67 U/L (40-110); Anion Gap 15 mmol/L (10-20); BUN (Urea Nitrogen) 13 mg/dL (8.9-20.6); Bilirubin, Total 1.5 mg/dL (0.2-1.2); Calc. Creatinine Clearance 0 mL/min (70-130); Calcium 9.7 mg/dL (7.8-10.44); Carbon Dioxide 25 mmol/L (22-29); Chloride 104 mmol/L (98-107); Globulin 3.2 g/dL (2.4-3.5); Glucose 101 mg/dL (70-105); Potassium 4.3 mmol/L (3.5-5.1); Protein, Total 8.1 g/dL (6.0-8.3); Sodium 140 mmol/L (136-145)
[2020-09-11] MEDS ORDERED: Clindamycin/D5W 900 mg/50 ml Premix Bag ONE (03:58)
[2020-09-11] MEDS ORDERED: Ketorolac Tromethamine 30 MG/ML VIAL ONE (03:58)
== END 2020-09-11 05:25 | disposition home or self-care (01) ==
LOC: ERS 01:24
DX: L03.211 Cellulitis of face (principal); R74.01 Elevation of levels of liver transaminase levels; M79.604 Pain in right leg; F17.210 Nicotine dependence, cigarettes, uncomplicated; Z79.899 Other long term (current) drug therapy
CPT/HCPCS: 36415; 80053; 85025; 96365; 96375; J1885; J3490